=== PATIENT | female | born 1970 | race Caucasian/White ===

== ENCOUNTER 2019-06-13 06:12 | Day surgery (SDC) | payer OTHER ==
[~2019-06-13] VITALS: Ht 157.5 cm; Wt 64.4 kg
[2019-06-13] MEDS ORDERED: CEFAZOLIN SOD 2 GM in D5W 50 ML IV ONE (07:30)
[2019-06-13] MEDS ORDERED: ROCURONIUM BROMIDE 10 MG/ML (ZEMURON) IV ONE (07:55)
[2019-06-13] MEDS ORDERED: SUGAMMADEX SODIUM 200 MG/2 ML VIAL IV ONE (07:55)
[2019-06-13] MEDS ORDERED: MIDAZOLAM HCL 5 MG/5 ML VIAL IVP ONE (07:55)
[2019-06-13] MEDS ORDERED: METHYLERGONOVINE MALEATE 0.2 MG/ML AMP IM ONE (07:55)
[2019-06-13] MEDS ORDERED: WATER FOR IRRIGATION,STERILE 1,000 ML IRRIG.SOLN IR ONE (07:55)
[2019-06-13] MEDS ORDERED: LR 1,000 ML IV.SOLN IV ONE (07:55)
[2019-06-13] MEDS ORDERED: NS 1000 ML IV.SOLN IV ONE (07:55)
[2019-06-13] MEDS ORDERED: BUPIVACAINE /PF 0.5% 30 ML VIAL INJ ONE (07:55)
[2019-06-13] MEDS ORDERED: BUPIVACAINE /EPINEPHRINE/PF 0.25% 30 ML VIAL INJ ONE (07:55)
[2019-06-13] MEDS ORDERED: SEVOFLURANE 15 MIN GAS INH ONE (07:55)
[2019-06-13] MEDS ORDERED: ONDANSETRON HCL 4 MG/2 ML VIAL IVP ONE (07:55)
[2019-06-13] MEDS ORDERED: DEXTROSE 50% JECT 50 ML DISP.SYRIN IVP ONE (07:55)
[2019-06-13] MEDS ORDERED: fentaNYL CITRATE 250 MCG/5 ML AMP IV ONE (07:55)
[2019-06-13] MEDS ORDERED: NS IRRIG SOLN 1000 ML IR ONE (07:55)
[2019-06-13] MEDS ORDERED: LR 1,000 ML IV SCH (08:59)
[2019-06-13] MEDS ORDERED: HYDROmorphone 2 MG/ML VIAL IVP PRN (09:00)
[2019-06-13] MEDS ORDERED: METOCLOPRAMIDE HCL 10 MG/2 ML VIAL IVP PRN (09:00)
[2019-06-13] MEDS ORDERED: HYDROmorphone 1 MG INJ. 1 MG/ML AMPUL IVP PRN (09:00)
[2019-06-13] MEDS: HYDROmorphone 1 MG INJ. 1 MG/ML AMPUL IVP PRN ×2 (14:00→14:15)
[2019-06-13] MEDS ORDERED: HYDROmorphone 1 MG INJ. 1 MG/ML AMPUL ONE (14:15)
[2019-06-13 15:00] VITALS: BP_SYST 110
[2019-06-13] MEDS ORDERED: MORPHINE SULFATE 10 MG/ML VIAL IVP PRN (15:00)
[2019-06-13] MEDS ORDERED: ONDANSETRON HCL 4 MG/2 ML VIAL IVP PRN (15:00)
--- NOTE | 2019-06-13 15:00 | NUR ---
INITIAL NOTE RECEIVED PT VIA GURNEY ACCOMPANIED BY OR NURSES. PT RESTING, NO ACUTE DISTRESS NOTED, LR INFUSING WELL. CALL LIGHT WITHIN REACH, BED IN LOW AND LOCKED POSITION WITH BED ALARM ON.
[2019-06-13 15:05] VITALS: BP_SYST 112
[2019-06-13] MEDS: SIMETHICONE 80 MG TAB.CHEW PO SCH ×2 (16:37→20:56)
[2019-06-13] MEDS: KCL 20 mEq in 0.45% NS 1000 mL 1,000 ML IV SCH (16:37)
[2019-06-13] MEDS: HYDROcodone/ACETAMIN 5-325 MG TAB (NORCO/ VICODIN) PO PRN (16:48)
--- NOTE | 2019-06-13 16:48 | NUR ---
PAIN MEDICATION PT COMPLAINING OF MILD PAIN 3/10 IN ABDOMEN. EDUCATED PT ON USES AND SIDE EFFECTS OF NORCO. PT VERBALIZED UNDERSTANDING. PRN NORCO INDICATED FOR MILD PAIN, NORCO ADMINISTERED. WILL CONTINUE TO MONITOR.
--- NOTE | 2019-06-13 18:01 | NUR ---
NAUSEA PT COMPLAINING OF NAUSEA. EDUCATED PT ON USES AND SIDE EFFECTS OF ZOFRAN. PT VERBALIZED UNDERSTANDING. PRN ZOFRAN ADMINISTERED. WILL CONTINUE TO MONITOR.
--- NOTE | 2019-06-13 18:40 | NUR ---
PAGED PAGED DR. LAMB
--- NOTE | 2019-06-13 18:45 | NUR ---
DR. LAMB SPOKE WITH MD VIA PHONE, INFORMED MD THAT PT IS FEELING VERY NAUSEOUS, VSS, ZOFRAN WAS ADMINISTERED AN HOUR AGO. NEW ORDERS RECEIVED VERIFIED WITH TELEPHONE READ BACK.
[2019-06-13] MEDS ORDERED: METOCLOPRAMIDE HCL 10 MG/2 ML VIAL IVP ONE (19:00)
--- NOTE | 2019-06-13 19:20 | NUR ---
OPENING NOTES RECEIVED PATIENT IN BED AAO X4. BREATHING UNLABORED ON ROOM AIR. IVF INFUSING WITH IV LINE INTACT. BED IN LOWEST LOCKED POSITION WITH ALARM ON. CALL LIGHT WITH IN REACH.
--- NOTE | 2019-06-13 19:29 | NUR ---
CLOSING NOTE PT AWAKE, DENIES ANY NAUSEA AT THIS TIME. IVF INFUSING WELL. LOUISE DRAINING TO GRAVITY. CALL LIGHT WITHIN REACH, BED IN LOW AND LOCKED POSITION WITH BED ALARM ON. ALL NEEDS MET THROUGH OUT SHIFT. PT CARE ENDORSED TO PHARMACIST INTERN RN.
[2019-06-13 20:48] VITALS: BP_SYST 120
[2019-06-13] MEDS: MORPHINE SULFATE 10 MG/ML VIAL IVP PRN (20:58)
--- NOTE | 2019-06-13 20:58 | NUR ---
PAIN MGT PATIENT MEDICATED WITH MORPHINE 4 MG FOR C/O 6/10 ABDOMINAL PAIN. VITAL SIGNS STABLE. POSSIBLE SIDE EFFECTS OF MEDICATION DISCUSSED WITH PATIENT.
[2019-06-13] MEDS: CEFAZOLIN 1 GM IVPB PREMIX 50 ML IV SCH (22:02)
--- NOTE | 2019-06-13 22:02 | NUR ---
ATB PATIENT DUE ANTIBIOTIC INFUSED. IV LINE INTACT.
[2019-06-14] MEDS: MORPHINE SULFATE 10 MG/ML VIAL IVP PRN ×3 (00:43→18:10)
--- NOTE | 2019-06-14 00:43 | NUR ---
PAIN MGT PATIENT MEDICATED WITH MORPHINE FOR C/O ABDOMINAL PAIN 11/03. VITAL SIGNS STABLE. CALL LIGHT WITH IN REACH
[2019-06-14 01:53] VITALS: BP_SYST 139
--- NOTE | 2019-06-14 02:10 | NUR ---
ROUNDS PATIENT AWAKE IN BED. DENIES PAIN AT THIS TIME. NO DISTRESS NOTED. IVF INFUSING.
[2019-06-14] MEDS: KCL 20 mEq in 0.45% NS 1000 mL 1,000 ML IV SCH ×2 (04:52→17:16)
--- NOTE | 2019-06-14 06:10 | NUR ---
PAIN MGT PATIENT MEDICATED WITH MORPHINE 6 MG FOR C/O ABDOMINAL PAIN 02/03. VITAL SIGNS STABLE. CALL LIGHT WITH IN REACH.
[2019-06-14] MEDS: CEFAZOLIN 1 GM IVPB PREMIX 50 ML IV SCH ×3 (06:16→21:07)
--- NOTE | 2019-06-14 06:31 | NUR ---
CLOSING NOTES' PATIENT RESTING IN BED. BREATHING UNLABORED ON ROOM AIR. IVF INFUSING WITH IV LINE INTACT. ABDOMINAL INCISIONS NO BLEEDING NOTED. PATIENT NEEDS ATTENDED. BED IN LOWEST LOCKED POSITION WITH ALARM ON. CALL LIGHT WITH IN REACH.
--- NOTE | 2019-06-14 07:31 | NUR ---
INITIAL NOTE PT RESTING IN BED, NO ACUTE DISTRESS NOTED, BREATHING EVEN AND UNLABORED. IVF INFUSING WELL. LOUISE DRAINING TO GRAVITY. CALL LIGHT WITHIN REACH, BED IN LOW AND LOCKED POSITION WITH BED ALARM ON.
[2019-06-14 08:00] VITALS: BP_SYST 110
[2019-06-14] MEDS: SIMETHICONE 80 MG TAB.CHEW PO SCH ×4 (09:00→21:00)
--- NOTE | 2019-06-14 09:10 | NUR ---
D/C LOUISE OUTPUT 800, CLEAR AND YELLOW. PT TOLERATED WELL.
--- NOTE | 2019-06-14 09:49 | NUR ---
Nutrition Update Alonzo Scale 16 noted. Pt admitted for subserosal leiomyoma of uterus. Diet: regular BMI: 26 kg/m2 RD to follow per nutrition care standards.
--- NOTE | 2019-06-14 09:56 | NUR ---
DR. LAMB SPOKE WITH AT NURSES STATION. TO PUT IN NEW ORDERS.
[2019-06-14 11:29] VITALS: BP_SYST 126
--- NOTE | 2019-06-14 11:30 | NUR ---
RN ROUNDS PT SITTING UP EATING LUNCH, PAIN CONTROLLED AT THIS TIME, WILL CONTINUE TO MONITOR.
[2019-06-14] MEDS: HYDROcodone/ACETAMIN 5-325 MG TAB (NORCO/ VICODIN) PO PRN ×2 (13:22→20:51)
--- NOTE | 2019-06-14 13:22 | NUR ---
PAIN MEDICATION PT COMPLAINING OF MILD PAIN 09/03. EDUCATED PT ON USES AND SIDE EFFECTS OF NORCO. PT VERBALIZED UNDERSTANDING. PRN NORCO ADMINISTERED. WILL CONTINUE TO MONITOR.
--- NOTE | 2019-06-14 15:27 | NUR ---
RN ROUNDS PT RESTING, NO ACUTE DISTRESS NOTED, BREATHING EVEN AND UNLABORED. WILL CONTINUE TO MONITOR.
[2019-06-14 15:53] VITALS: BP_SYST 124
--- NOTE | 2019-06-14 17:30 | NUR ---
RN ROUNDS PT AWAKE, PAIN CONTROLLED AT THIS TIME. WILL CONTINUE TO MONITOR.
--- NOTE | 2019-06-14 18:34 | NUR ---
CLOSING NOTE PT RESTING, PAIN CONTROLLED AT THIS TIME. IVF INFUSING WELL. CALL LIGHT WITHIN REACH, BED IN LOW AND LOCKED POSITION WITH BED ALARM ON. ALL NEEDS MET THROUGH OUT SHIFT. WILL CONTINUE TO MONITOR UNTIL PT CARE IS ENDORSED TO WET PROCESS MILLER HEAD RN.
[2019-06-14 20:00] VITALS: BP_SYST 171
--- NOTE | 2019-06-14 20:00 | NUR ---
RECEIVED PT IN BED V/S AND ASSESSMENT DONE SAME STABLE ,NO DISTRESS NOTED AT THIS TIME
--- NOTE | 2019-06-15 | NUR ---
PT RESTING AT THIS TIME IN NO DISTRESS AT THIS TIME
[2019-06-15 00:02] VITALS: BP_SYST 128
[2019-06-15] MEDS: CEFAZOLIN 1 GM IVPB PREMIX 50 ML IV SCH (05:56)
[2019-06-15] MEDS: KCL 20 mEq in 0.45% NS 1000 mL 1,000 ML IV SCH (05:58)
[2019-06-15] MEDS ORDERED: KCL 20 mEq in 0.45% NS 1000 mL 1,000 ML IV ONE (06:05)
--- NOTE | 2019-06-15 07:55 | NUR ---
INITIAL NOTE RECEIVED PT IN BED, NO S/S OF DISTRESS OR SOB NOTED, PT HAS NO C/O PAIN AT THIS TIME, PT IN STABLE CONDITION, PT RESTING COMFORTABLY, PT AAOX4, VERBAL. IV CATHETER PATENT, NO SIGNS OF INFECTION OR INFILTRATION NOTED, RUNNING IV FLUIDS ORDERED. BED AT LOWEST POSITION, CALL LIGHT WITHIN REACH, WILL CONTINUE TO MONITOR PT FOR ANY CHANGES, FALL AND SAFETY PRECAUTIONS IN PLACE. EDUCATED PT ON USE OF INCENTIVE SPIROMETER, PT TO USE 10 TIMES AN HOUR WHILE AWAKE, PT VERBALIZED UNDERSTANDING, PT AT 1000ML.
[2019-06-15 08:30] VITALS: BP_SYST 130
[2019-06-15] MEDS: SIMETHICONE 80 MG TAB.CHEW PO SCH (09:13)
--- NOTE | 2019-06-15 10:10 | NUR ---
MD NETTLES SPOKE WITH DR LAMB IN REGARDS TO D/C OF PT HOME TODAY, HE WILL BE IN TO SEE PT TODAY AND D/C HER HOME.
--- NOTE | 2019-06-15 10:30 | NUR ---
ROUNDS PT IN BED, NO S/S OF DISTRESS OR SOB NOTED, PT HAS NO C/O PAIN AT THIS TIME, PT IN STABLE CONDITION, PT RESTING COMFORTABLY, PT AMBULATES WITH STEADY GAIT AROUND ROOM. WILL CONTINUE TO MONITOR PT FOR ANY CHANGES.
[2019-06-15 11:27] VITALS: BP_SYST 112
[2019-06-15 11:49] VITALS: BP_SYST 110
--- NOTE | 2019-06-15 12:05 | NUR ---
ROUNDS PT IN BED, NO S/S OF DISTRESS OR SOB NOTED, PT HAS NO C/O PAIN AT THIS TIME, PT IN STABLE CONDITION, PT RESTING COMFORTABLY, DAUGHTER AT BEDSIDE, WILL CONTINUE TO MONITOR PT FOR ANY CHANGES.
--- NOTE | 2019-06-15 13:01 | NUR ---
D/C Patient Patient given medication reconciliation form and D/C instructions. Exit Care provided. Patient verbalized understanding. MD discussed with patient the results and treatment provided. Ambulatory with steady gait for discharge to home. Patient in stable condition, ID band removed. IV catheter removed, intact and dressing applied, no active bleeding. Rx given to patient prior to procedure, she has the medication at home already. Patient educated on pain management. All belongings sent with patient.
== END 2019-06-15 13:10 | disposition home or self-care (01) ==
LOC: SMU 06:12 → SDS 06:12 → SMU 15:20 → SDS 06-15 13:10
PROVIDERS: ATTEND Specialist
DX: N92.0 Excessive and frequent menstruation with regular cycle (principal); D25.9 Leiomyoma of uterus, unspecified; N85.2 Hypertrophy of uterus; N73.6 Female pelvic peritoneal adhesions (postinfective); N72 Inflammatory disease of cervix uteri; N83.8 Other noninflammatory disorders of ovary, fallopian tube and broad ligament; I10 Essential (primary) hypertension; I49.9 Cardiac arrhythmia, unspecified; R10.2 Pelvic and perineal pain; Z90.89 Acquired absence of other organs; Z98.890 Other specified postprocedural states; Z79.899 Other long term (current) drug therapy
CPT/HCPCS: 58554; 88300; 88307; C9399; J0690 ×3; J1170; J2210; J2250; J2270 ×2; J2405; J2765; J3010; J3490 ×2; J7030; J7060; J7120; S2900; E0190; J3480